=== PATIENT | male | born 1965 | race Two or more races ===

== ENCOUNTER 2016-05-14 00:23 | Emergency (ER) | payer SELFPAY ==
[2016-05-14 00:42] VITALS: BP 142/88; PULSE 64; TEMP 97.4; BMI 25.4
[2016-05-14] MEDS ORDERED: DIPHENHYDRAMINE 25 MG CAP PO ONE (03:50)
[2016-05-14] MEDS ORDERED: PREDNISONE 20 MG TAB PO ONE (03:50)
--- NOTE | 2016-05-14 03:53 | EDPRACDOC ---
- General Information Chief Complaint: Skin Rash (not drug induced) Stated Complaint: BURNING/ITCHING SCALP Time Seen by Provider: 05/14/16 03:46 Information Source: Patient Home Medications: Home Medications Hydrocodone Bit/Acetaminophen [Hydrocodon-Acetaminophen 5-325] 1 - 2 tab PO Q6H PRN #7 tab 07/16/15 Ibuprofen Tablet [Motrin] 800 mg PO TID #30 tab 07/16/15 Clotrimazole/Betamet Diprop [Clotrimazole-Betamethasone Crm] 15 gm TP DAILY 20 Days 05/14/16 Diphenhydramine [Benadryl] 25 mg PO TID #30 cap 05/14/16 Prednisone [Sterapred 10 mg/6 day pack] 21 tab PO DIR #1 pack 05/14/16 Allergies/Adverse Reactions: Allergies Allergy/AdvReac Type Severity Reaction Status Date / Time aspirin Allergy See Verified 12/28/13 10:53 Comments - History of Present Illness Onset: APPLICATIONS INTERN HPI: PATIENT PRESENTS C/O RASH ON SCALP THAT BEGAN AFTER USING HAIR DYE. FEELS LIKE HIS SKIN IS BURNING AND ITCHING. NO SOB. NO THROAT TIGHTNESS. ALSO NOTED A PATCH UNDER RIGHT ARM THAT WAS DRY AND ITCHING Rash Location: Reports: Arms, Scalp Quality: Reports: Pruritic, Red Known Exposure To: Reports: Chemical Irritability: Mild Pain Severity: None Associated Signs and Symptoms: Denies: Abdominal pain, Conjunctivitis, Facial swelling, Leg nodules, Red streaking, Sore throat ED Past Medical History - History Reviewed Yes Nurses notes reviewed and agree except as marked Travel Outside of [place] in the Last 3 Months?: No - Patient Medical History Psychological History: Denies: Depression Surgical History: Reports: Tonsillectomy/Adnoidectomy - Social Medical History Smoking Status: Never smoker ETOH: None Substance Abuse: None Lives With: Family Lives In: Home EDM Review of Systems - Review of Systems ROS Negative Except as Marked: Yes All systems reviewed and were negative except as marked Constitutional: No Symptoms Reported. negative: Fever, Chills, Weakness, Fatigue, Loss of Appetite Eyes: No Symptoms Reported. negative: Redness, Blurred Vision, Double Vision, Discharge, Pain, Light Sensitive, Photophobia Ears: No Symptoms Reported. negative: Pain, Hearing Loss, Drainage, Ear Pulling Throat: No Symptoms Reported. negative: Pain, Swelling Nose: No Symptoms Reported. negative: Congestion, Bleeding, Discharge, Injection, Swelling, Deformity, Ecchymosis, Tender, Abrasion, Laceration Mouth: No Symptoms Reported. negative: Pain, Drooling Respiratory: No Symptoms Reported. negative: Cough, Brassy Cough, Barky Cough, Shortness of Breath, Wheezing, Hemoptysis Cardiovascular: No Symptoms Reported. negative: Chest Pain, Palpitations, Syncope, Edema, Orthopnea, PND, Skin Mottling, Cyanosis Gastrointestinal: No Symptoms Reported. negative: Pain, Constipation, Nausea, Vomiting, Diarrhea, Melena, Formula Intolerance Genitourinary: No Symptoms Reported. negative: Dysuria, Hematuria, Frequency, Discharge, Bleeding, Testicular Pain, Neurological: No Symptoms Reported. negative: Headache, Dizziness, Seizure, Numbness, Weakness, Speech Difficulty, Gait Difficulty Musculoskeletal: No Symptoms Reported. negative: Neck, Chestwall, Ribs, Back, Shoulder, Arm, Elbow, Forearm, Wrist, Hand, Pelvis, Hip, Femur, Knee, Leg, Ankle , Foot Integumentary: Itching, Rash. negative: Bruising, Wound Allergic/Immunologic: Itching. negative: Hives Hematologic: No Symptoms Reported. negative: Lymphadenopathy, Easy Bruising, Easy Bleeding Endocrine: No Symptoms Reported. negative: Weight Gain, Weight Loss Psychiatric: No Symptoms Reported. negative: Anxiety, Depression, Hallucinations, Insomnia, Suicidal - Physical Exam Constitutional: Alert (Awake), No apparent distress Oriented to: Time, Person, Place Last recorded Vital Signs: Last Vital Signs Temp 97.4 F L 05/14/16 00:39 Pulse 64 05/14/16 00:39 Resp 20 05/14/16 00:39 BP 142/88 05/14/16 00:39 Pulse Ox 97 05/14/16 00:39 Oxygen Pulse Oxygen Saturation 97 O2 Device Room Air Oxygen Flow Rate Fraction of Inspired Oxygen ( FIO2) - HEENT Head: Other (LOCAL CONTACT DERMATITIS) Eye Exam: Normal (PERRL, EOMI, Sclera white) Oropharynx: Normal (Pharynx:Moist without exudate,Gums-no swelling) Tympanic Membrane: Normal ENT EAC: Normal TMJ: Normal Nose: No Symptoms Reported (septum midline) Neck: Normal (FROM, trachea at midline) - Respiratory/Cardiovascular Respiratory: Normal - CTA (BBS clear to auscultation without adventitious sounds ) Cardiovascular: Normal (RRR without murmur, gallop or rub) - GI Auscultation: Normal (NABS) Palpation: Normal (Soft,No rebound or guarding, non distended) Tenderness: Non tender Medina's Sign: Negative - Musculoskeletal Back: Normal (Non-Tender) Extremities: Normal (Normal tone, Pulses 2+ No cyanosis or edema, FROM) - Integumentary Skin: Warm, Dry, Other (SMALL PATCH UNDER RIGHT ARM DRY SCALING SKIN COLORED) Lymphatics: Normal (no adenopathy) - Neurologic Memory Impaired: Normal Motor Function: Normal (Normal tone, Pulses 2+ No cyanosis or edema, FROM) Cranial Nerve: Normal (CN II-X11 intact sensation, strength 5/5) Cerebellar: Normal Mood Description: Normal Perception: Normal Decision Time to Discharge: 03:53 - Departure Yes I personally saw and evaluated the patient. Disposition: Home Condition: Good Final Diagnosis: Tinea corporis Contact dermatitis Qualifiers: Contact dermatitis type: allergic Contact dermatitis trigger: cosmetics Qualified Code(s): L23.2 - Allergic contact dermatitis due to cosmetics Instructions: Acute Rash (ED) Education/Counseling Given To: Patient Education/Counseling Given Regarding: Diagnosis, Treatment, Prognosis, Follow Up Referrals: None,No Provider [Primary Care Provider] - One Week Preston Monroe MD [Staff Physician] - One Week Prescriptions: New Clotrimazole/Betamet Diprop [Clotrimazole-Betamethasone Crm] 15 gm TP DAILY 20 Days Diphenhydramine [Benadryl] 25 mg PO TID #30 cap Prednisone [Sterapred 10 mg/6 day pack] 21 tab PO DIR #1 pack No Action Hydrocodone Bit/Acetaminophen [Hydrocodon-Acetaminophen 5-325] 1 - 2 tab PO Q6H PRN #7 tab PRN Reason: Pain Ibuprofen Tablet [Motrin] 800 mg PO TID #30 tab
== END 2016-05-14 04:17 | disposition home or self-care (01) ==
LOC: ED 00:23
DX: L23.2 Allergic contact dermatitis due to cosmetics (principal)
CPT/HCPCS: 99282; J3490